=== PATIENT | male | born 1980 | race Caucasian/White ===

== ENCOUNTER 2017-12-13 01:08 | Emergency (ER) | payer SELFPAY ==
[2017-12-13] MEDS ORDERED: IBUPROFEN 400 MG TAB ONE (01:49)
[2017-12-13] MEDS ORDERED: IBUPROFEN 200 MG TAB PO ONE (01:49)
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
--- NOTE | 2017-12-13 09:02 | RAD REPORT ---
EXAM DESCRIPTION: Shoulder Right 2 View - 12/13/2017 1:49 am CLINICAL HISTORY: Trauma, right shoulder pain COMPARISON: None. TECHNIQUE: Internal and external rotation views of the right shoulder were obtained. FINDINGS: Mild AC joint degenerative changes are present. No acute fracture or dislocation seen. IMPRESSION: No acute finding evident.
== END 2017-12-13 02:32 | disposition home or self-care (01) ==
LOC: ER 01:08
DX: S33.5XXA Sprain of ligaments of lumbar spine, initial encounter (principal); M24.811 Other specific joint derangements of right shoulder, not elsewhere classified; V49.49XA Driver injured in collision with other motor vehicles in traffic accident, initial encounter; I10 Essential (primary) hypertension; F17.210 Nicotine dependence, cigarettes, uncomplicated
CPT/HCPCS: 72100; 99283

== ENCOUNTER 2019-09-22 14:56 | Emergency (ER) | payer SELFPAY ==
--- NOTE | 2019-09-22 16:10 | EDPHYS ---
Physician Documentation [facility] Name: Duy Demarco Age: 38 yrs Sex: Male : 1980 Arrival Date: 09/22/2019 Time: 14:59 Bed 9 Private MD: ED Physician Will Ly HPI: 09/22 16:11 This 38 yrs old Male presents to ER via Ambulatory with complaints of Back jr8 Pain. 16:11 The patient presents with pain that is acute. The symptoms are located in the low back. jr8 Onset: The symptoms/episode began/occurred acutely, today. The pain does not radiate. Associated signs and symptoms: The patient has no apparent associated signs or symptoms. The problem was sustained when lifting heavy object. Modifying factors: The patient symptoms are alleviated by nothing, the patient symptoms are aggravated by any movement. Severity of symptoms: At their worst the symptoms were moderate, in the emergency department the symptoms are unchanged. The patient has experienced a previous episode. The patient has not recently seen a physician. Stated that he was at work lifting objects. [place]win pop in back with immediate pain that will not go away . Historical: - Allergies: 15:03 No Known Allergies; hb - Home Meds: 15:03 unknown HTN med [Active]; hb - PMHx: 15:03 Hypertension; hb - PSHx: 15:03 Hernia repair; Cholecystectomy; hb - Immunization history:: Adult Immunizations up to date. - Social history:: Smoking status: Patient/guardian denies using tobacco. - Ebola Screening: : No symptoms or risks identified at this time. ROS: 16:11 Eyes: Negative for injury, pain, redness, and discharge, ENT: Negative for injury, jr8 pain, and discharge, Neck: Negative for injury, pain, and swelling, Cardiovascular: Negative for chest pain, palpitations, and edema, Respiratory: Negative for shortness of breath, cough, wheezing, and pleuritic chest pain, Abdomen/GI: Negative for abdominal pain, nausea, vomiting, diarrhea, and constipation, MS/Extremity: Negative for injury and deformity, Skin: Negative for injury, rash, and discoloration, Neuro: Negative for headache, weakness, numbness, tingling, and seizure. 16:11 Back: Positive for pain at rest, pain with movement, of the low back area. Exam: 16:11 Eyes: Pupils equal round and reactive to light, extra-ocular motions intact. Lids and jr8 lashes normal. Conjunctiva and sclera are non-icteric and not injected. Cornea within normal limits. Periorbital areas with no swelling, redness, or edema. ENT: Nares patent. No nasal discharge, no septal abnormalities noted. Tympanic membranes are normal and external auditory canals are clear. Oropharynx with no redness, swelling, or masses, exudates, or evidence of obstruction, uvula midline. Mucous membranes moist. Neck: Trachea midline, no thyromegaly or masses palpated, and no cervical lymphadenopathy. Supple, full range of motion without nuchal rigidity, or vertebral point tenderness. No Meningismus. Cardiovascular: Regular rate and rhythm with a normal S1 and S2. No gallops, murmurs, or rubs. Normal PMI, no JVD. No pulse deficits. Respiratory: Lungs have equal breath sounds bilaterally, clear to auscultation and percussion. No rales, rhonchi or wheezes noted. No increased work of breathing, no retractions or nasal flaring. Abdomen/GI: Soft, non-tender, with normal bowel sounds. No distension or tympany. No guarding or rebound. No evidence of tenderness throughout. Skin: Warm, dry with normal turgor. Normal color with no rashes, no lesions, and no evidence of cellulitis. MS/ Extremity: Pulses equal, no cyanosis. Neurovascular intact. Full, normal range of motion. Neuro: Awake and alert, GCS 15, oriented to person, place, time, and situation. Cranial nerves II-XII grossly intact. Motor strength 5/5 in all extremities. Sensory grossly intact. Cerebellar exam normal. Normal gait. 16:11 Back: pain, that is moderate, of the left low back and right low back, ROM is painful, normal spinal alignment noted, CVA tenderness, is absent, muscle spasm, is not present. Vital Signs: 15:03 BP 144 / 107; Pulse 100; Resp 16; Temp 98.3; Pulse Ox 100% on R/A; Weight 106.59 kg; hb Height 5 ft. 10 in. (177.80 cm); Pain 9/10; 15:03 Body Mass Index 33.72 (106.59 kg, 177.80 cm) hb MDM: 15:48 Patient medically screened. jr8 16:04 Data reviewed: vital signs, nurses notes, and as a result, I will discharge patient. jr8 Data interpreted: Pulse oximetry: on room air is 100 %. Interpretation: normal. Counseling: I had a detailed discussion with the patient and/or guardian regarding: the historical points, exam findings, and any diagnostic results supporting the discharge/admit diagnosis, the need for outpatient follow up, a family practitioner, to return to the emergency department if symptoms worsen or persist or if there are any questions or concerns that arise at home. Administered Medications: 16:25 Drug: TORadol - Ketorolac 15 mg Route: IM; Site: right deltoid; iw 16:35 Follow up: Response: No adverse reaction iw Disposition: 09/23 07:13 Co-signature as Attending Physician, Will Ly MD I agree with the assessment and anabelle plan of care. Disposition: 09/22/19 16:09 Discharged to Home. Impression: Low back pain. - Condition is Stable. - Discharge Instructions: Back Pain, Adult, Musculoskeletal Pain, Back Exercises, [id number], Heat Therapy. - Prescriptions for tramadol 200 mg Oral tablet extended release 24 hr - take 1 tablet by ORAL route once daily; 5 tablet. Ibuprofen 800 mg Oral Tablet - take 1 tablet by ORAL route every 12 hours As needed take with food; 20 tablet. Robaxin 500 mg Oral Tablet - take 2 tablet by ORAL route every 6 hours As needed; 40 tablet. Medrol (Reji) 4 mg Oral Tablets, Dose Pack - take 1 tablet by ORAL route as directed - follow package instructions; 1 packet. - Medication Reconciliation Form, Thank You Letter, Antibiotic Education, Prescription Opioid Use form. - Follow up: Private Physician; When: 2 - 3 days; Reason: Recheck today's complaints, Continuance of care, Re-evaluation by your physician. - Problem is new. - Symptoms have improved. Signatures: Will Ly MD MD cha Williams, Irene RN [place] PA PA jr8 Nita Mccrary RN RN Corrections: (The following items were deleted from the chart) 09/22 16:39 16:09 09/22/2019 16:09 Discharged to Home. Impression: Low back pain. Condition is iw Stable. Forms are Medication Reconciliation Form, Thank You Letter, Antibiotic Education, Prescription Opioid Use. Follow up: Private Physician; When: 2 - 3 days; Reason: Recheck today's complaints, Continuance of care, Re-evaluation by your physician. Problem is new. Symptoms have improved. jr8
--- NOTE | 2019-09-22 16:10 | ER ---
Nurse's Notes [facility] Name: Duy Demarco Age: 38 yrs Sex: Male : 1980 Arrival Date: 09/22/2019 Time: 14:59 Bed 9 Private MD: Diagnosis: Low back pain Presentation: 09/22 15:02 Presenting complaint: Low back pain after lifting heavy benches at work this morning. hb Transition of care: patient was not received from another setting of care. Onset of symptoms was September 22, 2019. Risk Assessment: Do you want to hurt yourself or someone else? Patient reports no desire to harm self or others. Initial Sepsis Screen: Does the patient meet any 2 criteria? No. Patient's initial sepsis screen is negative. Does the patient have a suspected source of infection? No. Patient's initial sepsis screen is negative. Care prior to arrival: None. 15:02 Method Of Arrival: Ambulatory hb 15:02 Acuity: STACIE 4 hb Historical: - Allergies: 15:03 No Known Allergies; hb - Home Meds: 15:03 unknown HTN med [Active]; hb - PMHx: 15:03 Hypertension; hb - PSHx: 15:03 Hernia repair; Cholecystectomy; hb - Immunization history:: Adult Immunizations up to date. - Social history:: Smoking status: Patient/guardian denies using tobacco. - Ebola Screening: : No symptoms or risks identified at this time. Vital Signs: 15:03 BP 144 / 107; Pulse 100; Resp 16; Temp 98.3; Pulse Ox 100% on R/A; Weight 106.59 kg; hb Height 5 ft. 10 in. (177.80 cm); Pain 9/10; 15:03 Body Mass Index 33.72 (106.59 kg, 177.80 cm) hb ED Course: 14:59 Patient arrived in ED. as 15:03 Triage completed. hb 15:03 Arm band placed on. hb 15:45 Meredith Clements, LUCIANO is Primary Nurse. iw 15:47 [place] PA is PHCP. jr8 15:47 Will Ly MD is Attending Physician. jr8 Administered Medications: 16:25 Drug: TORadol - Ketorolac 15 mg Route: IM; Site: right deltoid; iw 16:35 Follow up: Response: No adverse reaction iw Outcome: 16:09 Discharge ordered by MD. scruggs 16:39 Patient left the ED. Signatures: Itzel Abraham Irene, RN RN [place] PA PA jr8 Nita Mccrary RN RN hb
[2019-09-22] MEDS ORDERED: KETOROLAC 30 MG/ML INJ ONE (16:21)
[2019-09-22 17:06] VITALS: BP 144/107; TEMP 98.3; O2SAT 100
== END 2019-09-22 16:39 | disposition home or self-care (01) ==
LOC: ER 14:56
DX: M54.5 Low back pain (principal); I10 Essential (primary) hypertension
CPT/HCPCS: 96372; 99282